=== PATIENT | female | born 1980 | race Caucasian/White ===

== ENCOUNTER 2019-06-20 10:45 | Emergency (ER) | payer OTHER ==
[~2019-06-20] VITALS: Ht 167.6 cm; Wt 63.5 kg
[2019-06-20 10:51] VITALS: BP_SYST 164
[2019-06-20 11:39] LABS: BASOPHILS % (AUTO) 0.4 % (0.0-2.0); EOSINOPHILS # (AUTO) 0.1 K/uL (0.0-0.4); EOSINOPHILS % (AUTO) 0.6 % (0.0-4.0); HEMOGLOBIN 13.7 g/dL (12.0-16.0); LYMPHOCYTES % (AUTO) 20.9 % (20.5-51.5); MEAN CORPUSCULAR HEMOGLOBIN 29 pg (27-31); MEAN CORPUSCULAR HGB CONC 34 % (32-36); MEAN CORPUSCULAR VOLUME 85 fL (79.0-98.0); MONOCYTES # (AUTO) 0.7 K/uL (0.0-1.0); MONOCYTES % (AUTO) 7.5 % (1.7-9.3); NEUTROPHILS # (AUTO) 6.6 K/uL (1.8-7.7); NEUTROPHILS % (AUTO) 70.6 % (40.0-70.0); PLATELET COUNT (AUTO) 222 K/uL (130-430); RED CELL DISTRIBUTION WIDTH 12.9 % (9.0-15.0); WHITE BLOOD COUNT (AUTO) 9.4 K/uL (4.8-10.8)
[2019-06-20] MEDS ORDERED: BUPR-120 PO (11:48)
[2019-06-20] MEDS ORDERED: LAMO200T2 PO (11:48)
[2019-06-20 11:51] LABS: CALCIUM 8.9 mg/dL (8.4-11.0); CREATININE 0.87 mg/dL (0.55-1.30); POTASSIUM 4.3 mmol/L (3.5-5.1)
[2019-06-20] MEDS ORDERED: levETIRAcetam 1,000 MG in NS 100 ML IV ONE (12:00)
[2019-06-20 12:08] LABS: ALBUMIN 3.5 g/dL (3.4-4.8); FREE T4 (FREE THYROXINE) 0.9 ng/dL (0.6-1.6); THYROID STIMULATING HORMONE 1.95 uIu/mL (0.34-4.82); TOTAL BILIRUBIN 0.4 mg/dL (0.0-1.0)
[2019-06-20 12:39] LABS: CANNABINOID, URINE POSITIVE (NEG <=50); COCAINE, URINE POSITIVE (NEG <=150); UR TRICYCLIC ANTIDEPRESSANTS POSITIVE (NEG <=300)
[2019-06-20 12:40] LABS: BARBITURATE, URINE NEGATIVE (NEG <=200); BENZODIAZEPINE, URINE NEGATIVE (NEG <=150); METHAMPHETAMINES SCREEN,URINE NEGATIVE (NEG <=500); OPIATE, URINE NEGATIVE (NEG <=100); PHENCYCLIDINE SCREEN,URINE NEGATIVE (NEG <=25); URINE AMPHETAMINE NEGATIVE (NEG <=500); URINE METHADONE NEGATIVE (NEG <=200); URINE OXYCODONE SCREEN NEGATIVE (NEG <=100); URINE PROPOXYPHENE SCREEN NEGATIVE (NEG <=300)
[2019-06-20] MEDS ORDERED: IBUPROFEN 600 MG TABLET PO ONE (12:45)
[2019-06-20] MEDS ORDERED: NORT50CA5 PO (12:51)
[2019-06-20 14:05] VITALS: BP_SYST 131
== END 2019-06-20 14:05 | disposition home or self-care (01) ==
LOC: SED 10:45
DX: S01.531A Puncture wound without foreign body of lip, initial encounter (principal); R56.9 Unspecified convulsions; F19.10 Other psychoactive substance abuse, uncomplicated; F31.9 Bipolar disorder, unspecified; Z79.899 Other long term (current) drug therapy
CPT/HCPCS: 36415; 70450; 80053; 80307; 81002; 81025; 83735; 84439; 84443; 84479; 85025; 96365; 99284; J1953